=== PATIENT | male | born 1955 | race Caucasian/White ===

== ENCOUNTER 2024-01-25 22:04 | Emergency (ER) | payer MEDICARE, OTHER, SELFPAY ==
[2024-01-25 22:20] VITALS: BP 145/76; PULSE 79; RESP 20; TEMP 36.8; O2SAT 100
[2024-01-25 23:34] VITALS: BP 148/82; PULSE 69; RESP 16; O2SAT 100
--- NOTE | 2024-01-25 23:41 | ED.GENADULT ---
HPI - General Adult General Chief complaint: Skin/Abscess/Foreign Body Stated complaint: dog scratch Time Seen by Provider: 01/25/24 23:40 History of Present Illness HPI narrative: Patient is a 68-year-old male who presents the emergency department this evening complaining of a dog scratch or bite to the dorsum of his right hand. Patient states that happened so fast and he is unsure if it was a bite or scratch. Dogs are up-to-date on immunizations. Patient is not sure when his last tetanus shot was. He denies any additional injuries or concerns at this time. Related Data Allergies Allergy/AdvReac Type Severity Reaction Status Date / Time No Known Allergies Allergy Verified 01/25/24 23:34 Review of Systems Review of Systems: All systems are reviewed and are negative unless stated otherwise in the HPI. Exam Narrative: General: Alert, awake, afebrile, in no acute distress. HEENT: PERRL, no rhinorrhea, no post nasal drip, oropharynx clear.. Cardiovascular: Regular rate and rhythm, no murmurs, rubs or gallops, no peripheral edema. Respiratory: Clear to auscultation bilaterally, no tachypnea, no wheezing, no rhonchi, no rubs, no respiratory distress. Abdomen: Soft, nontender, nondistended, no rebound, no guarding, no peritoneal signs. Musculoskeletal: No joint swelling or deformity, normal muscle tone. Skin: 4 cm curvilinear abrasion to the dorsum of the right hand appears to be superficial. Neurological: Alert and oriented to person, place, and time. Follows all commands. No focal deficits, speech is clear and fluent. Course Vital Signs Vital signs: Vital Signs Temperature 98.2 F 01/25/24 22:20 Pulse Rate 79 01/25/24 22:20 Respiratory Rate 20 01/25/24 22:20 Blood Pressure 145/76 H 01/25/24 22:20 Pulse Oximetry 100 01/25/24 22:20 Oxygen Delivery Room Air 01/25/24 22:20 Temperature 98.2 F 01/25/24 22:20 Pulse Rate 69 01/25/24 23:34 Respiratory Rate 16 01/25/24 23:34 Blood Pressure 148/82 H 01/25/24 23:34 Pulse Oximetry 100 01/25/24 23:34 Oxygen Delivery Room Air 01/25/24 22:20 Medical Decision Making MDM Narrative Medical decision making narrative: The patient was evaluated by myself in the emergency department. History is obtained from patient who is an independent historian and physical exam was performed. External medical records were reviewed at this time. Patient was administered tetanus shot today. Differential diagnosis considerations include laceration versus abrasion body. Patient refused x-ray as he did not deem it was necessary. Comorbidities impacting this visit include none. I have evaluated and discussed social determinants of health with the patient that could potentially impact subsequent diagnosis and treatment plans. On repeat assessment of the patient, reevaluation revealed that the patient is doing well and is in no acute distress. Patient symptoms have improved since he arrived to our emergency department. Repeat vital signs were all reviewed and noted to be stable. Differential diagnosis and treatment plan were discussed with the patient at bedside. Patient agrees with discussion and after shared medical decision making agrees with discharge. All questions were answered to the patient's satisfaction. Patient will follow up with his PCP in 3-5 days. Patient was provided with strict return precautions and instructed to return to the emergency department if any new or worsening symptoms develop. Script for Augmentin was sent to patient's pharmacy and he was instructed to take as prescribed. The patient was discharged in stable condition. Vital Signs Vital Signs: Vital Signs Temperature 98.2 F 01/25/24 22:20 Pulse Rate 79 01/25/24 22:20 Respiratory Rate 20 01/25/24 22:20 Blood Pressure 145/76 H 01/25/24 22:20 Pulse Oximetry 100 01/25/24 22:20 Oxygen Delivery Room Air 01/25/24 22:20 Temperature 98.2 F 01/25/24
[2024-01-25] MEDS: TETANUS,DIPHTHERIA,AC PERTUSSIS ADULT (0.5 ML) BOOSTRIX IM (23:56)
[2024-01-26] MEDS: AMOXICILLIN/CLAVULANATE K 875-125 MG TAB 1 TABLET PO (00:40)
== END 2024-01-26 00:45 | disposition home or self-care (01) ==
PROVIDERS: Emergency Provider Emergency Medicine
DX: S60.511A Abrasion of right hand, initial encounter (principal); Z23 Encounter for immunization; W54.0XXA Bitten by dog, initial encounter
CPT/HCPCS: 90471; 90715; 99283; A9270